=== PATIENT | male | born 1985 | race Caucasian/White ===

== ENCOUNTER 2023-08-11 19:48 | Outpatient (CLI) | payer MEDICARE, OTHER, SELFPAY ==
[2023-08-11 19:08] LABS: Alanine Aminotransferase 65 U/L (12-78); Albumin Level 4.7 g/dl (3.5-5.0); Alkaline Phosphatase 87 U/L (38-126); Anion Gap 11.1 mEq/L (5-15); Aspartate Amino Transferase 50 U/L (17-59); Bilirubin,Total 0.7 mg/dl (0.2-1.3); Blood Urea Nitrogen 15 mg/dl (9-20); Calcium 9.7 mg/dl (8.4-10.2); Carbon Dioxide 26 mmol/L (22.0-30.0); Chloride 108 mmol/L (98-107); Chol/HDL Ratio 6.4 (1-3.5); Cholesterol 236 mg/dl (140-200); Estimated Glomerular Filt Rate 67 ml/min (>60); GFR (African American) 81 ML/MIN (>60); Globulin 2.4 g/dL (1.3-3.2); Glucose 93 mg/dl (74-100); HDL Cholesterol 37 mg/dl (40-60); Potassium 4.1 mmoL/L (3.5-5.1); Sodium 141 mmol/L (136-145); Total Protein,Serum 7.1 g/dl (6.3-8.2); Triglycerides 227 mg/dl (30-150); VLDL Cholesterol 45 mg/dL (0-40)
[2023-08-11 19:25] LABS: Direct LDL Cholesterol 132.03 mg/dL (100-129)
[2023-08-11 19:39] LABS: Thyroid Stimulating Hormone 1.27 uIU/mL (0.465-4.68)
== END 2023-08-11 23:59 ==
LOC: LAB.DROPOF 19:49
PROVIDERS: PCP Family Medicine; Visit Provider Family Medicine
DX: E78.5 Hyperlipidemia, unspecified (principal)
CPT/HCPCS: 80053; 80061; 84443

== ENCOUNTER 2024-06-04 18:37 | Outpatient (CLI) | payer MEDICARE, OTHER, SELFPAY ==
[2024-06-04 19:22] LABS: Chloride 111 mmol/L (98-107)
[2024-06-04 19:23] LABS: Albumin Level 4.4 g/dl (3.5-5.0); Sodium 141 mmol/L (136-145)
[2024-06-04 19:25] LABS: Blood Urea Nitrogen 16 mg/dl (9-20)
[2024-06-04 19:26] LABS: Alanine Aminotransferase 150 U/L (12-78); Albumin/Globulin Ratio 1.9 (1.1-1.8); Alkaline Phosphatase 76 U/L (38-126); Aspartate Amino Transferase 88 U/L (17-59); Bilirubin,Total 0.6 mg/dl (0.2-1.3); Calcium 9.5 mg/dl (8.4-10.2); Carbon Dioxide 26 mmol/L (22.0-30.0); Chol/HDL Ratio 5.6 (1-3.5); Cholesterol 197 mg/dl (140-200); Estimated Glomerular Filt Rate 61 ml/min (>60); GFR (African American) 74 ML/MIN (>60); Globulin 2.3 g/dL (1.3-3.2); Glucose 74 mg/dl (74-100); HDL Cholesterol 35 mg/dl (40-60); Total Protein,Serum 6.7 g/dl (6.3-8.2); Triglycerides 309 mg/dl (30-150); VLDL Cholesterol 62 mg/dL (0-40)
[2024-06-04 19:43] LABS: Direct LDL Cholesterol 118.23 mg/dL (100-129)
[2024-06-04 19:57] LABS: Thyroid Stimulating Hormone 2.14 uIU/mL (0.465-4.68)
== END 2024-06-04 23:59 | disposition home or self-care (01) ==
LOC: LAB 18:37
PROVIDERS: PCP Family Medicine; Visit Provider Family Medicine
DX: E78.5 Hyperlipidemia, unspecified (principal)
CPT/HCPCS: 80053; 80061; 84443

== ENCOUNTER 2024-06-24 10:48 | Outpatient (CLI) | payer MEDICARE, SELFPAY ==
--- NOTE | 2024-06-24 10:55 | US_ITS ---
FINAL REPORT TECHNIQUE: Sonographic images of the right upper quadrant were obtained. CLINICAL HISTORY: elevated liver enzymes COMPARISON: None FINDINGS: PANCREAS: Unremarkable. LIVER: Fatty infiltrated. No focal hepatic lesion. No intrahepatic biliary ductal dilatation. The portal vein is patent. GALLBLADDER: The patient is status post cholecystectomy. COMMON DUCT: 4 mm. Normal for age. RIGHT KIDNEY: The right kidney measures 12.3 cm. There is no hydronephrosis, mass, or stone. FREE FLUID: None. IMPRESSION: Fatty liver. Reviewed, Interpreted and Dictated by Zainab Renae MD Transcribed by Antonina Rodriguez Authenticated and [facility]
== END 2024-06-24 23:59 | disposition home or self-care (01) ==
LOC: RAD 10:52
PROVIDERS: PCP Family Medicine; Visit Provider Family Medicine
DX: R74.8 Abnormal levels of other serum enzymes (principal)
CPT/HCPCS: 76705